=== PATIENT | male | born 1980 | race Caucasian/White ===

== ENCOUNTER 2017-10-25 20:05 | Emergency (ER) | payer SELFPAY ==
[~2017-10-25] VITALS: Ht 182.9 cm; Wt 81.8 kg
[2017-10-25 20:15] VITALS: TEMP 99.5
[2017-10-25] MEDS ORDERED: PERCOCET 325 MG1 TA2 PO (22:17)
[2017-10-25 23:06] VITALS: BP 129/71; PULSE 74
== END 2017-10-25 22:54 | disposition home or self-care (01) ==
LOC: COL.ER 20:05
DX: S92.001A Unspecified fracture of right calcaneus, initial encounter for closed fracture (principal); S82.55XA Nondisplaced fracture of medial malleolus of left tibia, initial encounter for closed fracture; V86.06XA Driver of dirt bike or motor/cross bike injured in traffic accident, initial encounter; Y92.830 Public park as the place of occurrence of the external cause
CPT/HCPCS: Q4045

== ENCOUNTER 2017-10-31 10:54 | Day surgery (SDC) | payer SELFPAY ==
[~2017-10-31] VITALS: Ht 182.9 cm; Wt 81.8 kg
[2017-10-31] VITALS (8 sets, daily range): BP systolic 112–136; BP diastolic 50–74; PULSE 54–72; TEMP 97.5
[~2017-10-31 10:54] MED LIST: PERCOCET 325 MG1 TA2 PO
== END 2017-10-31 21:25 | disposition home or self-care (01) ==
LOC: SDCO 10:54 → JCC 17:35 → SDCO 21:25
DX: S92.001A Unspecified fracture of right calcaneus, initial encounter for closed fracture (principal); S82.52XA Displaced fracture of medial malleolus of left tibia, initial encounter for closed fracture; S86.011A Strain of right Achilles tendon, initial encounter
CPT/HCPCS: OP; C1713; J0330; J0690; J1170; J2250; J2704; J3010; J7120